=== PATIENT | female | born 1950 | race Caucasian/White ===

== ENCOUNTER 2019-07-14 09:30 | Inpatient (IN) | payer MEDICARE ==
[2019-07-14] MEDS ORDERED: MORPHINE SULFATE 4 MG/ML SYRINGE IM STA (10:25)
--- NOTE | 2019-07-14 10:52 | ED ---
Back Pain HPI <Mehdi Mckeon - Last Filed: 07/14/19 14:29> - General Source: patient, RN notes reviewed, old records reviewed Limitations: no limitations <Tessa Sosaily - Last Filed: 07/14/19 14:47> - General Chief Complaint: Back Pain/Injury Stated Complaint: lower back pain from fall, Hx back Sx Time Seen by Provider: 07/14/19 09:52 - History of Present Illness Initial Comments: Patient is 68-year-old female. She presents emergency department today with chief complaint of lower back pain after a fall last week. Patient reports she was walking with her cane, and tripped and fell her dining room landing on her buttocks. Patient was seen by her primary care doctor on Wednesday was given IM pain medication and had a one x-ray and stated there is no fracture and sent home. Patient reports that when she fell she landed on her right hip. She states that she's had some pain in the center of her lower back. As well as the left hip. Patient states that she has been able to walk but it's been very difficult. Patient states she's had no other significant symptoms. (Tiat Sosa) - Related Data Allergies Allergy/AdvReac Type Severity Reaction Status Date / Time ibuprofen [From Motrin] Allergy Unknown Verified 07/14/19 14:41 Penicillins Allergy Unknown Verified 07/14/19 14:41 quinine Allergy Unknown Verified 07/14/19 14:41 Review of Systems ROS Other: All systems not noted in ROS Statement are negative. <Mehdi Mckeon - Last Filed: 07/14/19 14:29> ROS Other: All systems not noted in ROS Statement are negative. <Tita Sosa - Last Filed: 07/14/19 14:47> ROS Statement: Those systems with pertinent positive or pertinent negative responses have been documented in the HPI. Past Medical History Past Medical History: Hypertension, Seizure Disorder Additional Past Medical History / Comment(s): Back problems. History of Any Multi-Drug Resistant Organisms: None Reported Past Surgical History: Hysterectomy, Orthopedic Surgery Past Psychological History: No Psychological Hx Reported Smoking Status: Never smoker Past Alcohol Use History: Occasional Past Drug Use History: None Reported <Tita Sosa - Last Filed: 07/14/19 14:47> General Exam Limitations: no limitations General appearance: alert, in no apparent distress Head exam: Present: atraumatic, normocephalic, normal inspection Eye exam: Present: normal appearance, PERRL, EOMI. Absent: scleral icterus, conjunctival injection, periorbital swelling ENT exam: Present: normal exam, mucous membranes moist Neck exam: Present: normal inspection. Absent: tenderness, meningismus, lymphadenopathy Respiratory exam: Present: normal lung sounds bilaterally. Absent: respiratory distress, wheezes, rales, rhonchi, stridor Cardiovascular Exam: Present: regular rate, normal rhythm, normal heart sounds. Absent: systolic murmur, diastolic murmur, rubs, gallop, clicks GI/Abdominal exam: Present: soft, normal bowel sounds. Absent: distended, tenderness, guarding, rebound, rigid Extremities exam: Present: normal inspection, full ROM, normal capillary refill, other (Roman has some lumbar sacral tenderness. No bruising noted. Tenderness over the left hip.). Absent: tenderness, pedal edema, joint swelling, calf tenderness Back exam: Present: normal inspection Neurological exam: Present: alert, oriented X3, CN II-XII intact Psychiatric exam: Present: normal affect, normal mood Skin exam: Present: warm, dry, intact, normal color. Absent: rash <Tita Sosa - Last Filed: 07/14/19 14:47> - General Exam Comments Initial Comments: Pleasant 68-year-old female. 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 (Tita Sosa) Course Vital Signs 07/14/19 07/14/19 09:39 14:38 Temperature 97.3 F L Pulse Rate 90 83 Respiratory 20 18 Rate Blood Pressure 120/82 138/87 O2 Sat by Pulse 98 96 Oximetry Medical Decision Making - Lab Data Result diagrams: 07/14/19 13:51 07/14/19 13:51 <Mehdi Mckeon - Last Filed: 07/14/19 14:29> - Lab Data Result diagrams: 07/14/19 13:51 07/14/19 13:51 - Radiology Data Radiology results: report reviewed <Tita Sosa - Last Filed: 07/14/19 14:47> - Medical Decision Making The patient was seen and examined. All diagnostics were reviewed. The case is discussed with the PA and I agree with the findings as above. The case is also discussed with Dr. Rubio and he is agreeable with admission. (Mehdi Mckeon) Patient is a 68-year-old female presents to return today 1 week post fall. She slipped and fell on her hardwood floor in her dining room partially one week ago. Patient reports inability to ambulate due to severe pain. He reports more on the right side. Patient had x-rays of her hip and pelvis and lumbar spine show no acute fracture. She continued to have inability to ambulate CT of the pelvis was completed. There is evidence of a sacral fracture S1-S2. With patient's concern for falling and evidence of fracture and inability to ambulate we discussed admission. Discussed case with Dr. Blood who discussed case with Dr. Rubio. Blood work was reviewed and unremarkable. Patient admitted with consult to physical therapy. (Tita Sosa) - Lab Data Lab Results 07/14/19 07/14/19 07/14/19 Range/Units 13:51 13:51 13:51 WBC 8.5 (3.8-10.6) k/uL RBC 4.04 (3.80-5.40) m/uL Hgb 13.4 (11.4-16.0) gm/dL Hct 38.9 (34.0-46.0) % MCV 96.2 (80.0-100.0) fL MCH 33.1 (25.0-35.0) pg MCHC 34.4 (31.0-37.0) g/dL RDW 13.0 (11.5-15.5) % Plt Count 348 (150-450) k/uL Neutrophils % 59 % Lymphocytes % 26 % Monocytes % 6 % Eosinophils % 5 % Basophils % 1 % Neutrophils # 5.0 (1.3-7.7) k/uL Lymphocytes # 2.2 (1.0-4.8) k/uL Monocytes # 0.6 (0-1.0) k/uL Eosinophils # 0.4 (0-0.7) k/uL Basophils # 0.1 (0-0.2) k/uL Sodium 138 (137-145) mmol/L Potassium 4.0 (3.5-5.1) mmol/L Chloride 99 (98-107) mmol/L Carbon Dioxide 28 (22-30) mmol/L Anion Gap 11 mmol/L BUN 13 (7-17) mg/dL Creatinine 0.46 L (0.52-1.04) mg/dL Est GFR (CKD-EPI)AfAm >90 (>60 ml/min/1.73 sqM) Est GFR (CKD-EPI)NonAf >90 (>60 ml/min/1.73 sqM) Glucose 94 (74-99) mg/dL Calcium 9.5 (8.4-10.2) mg/dL Total Bilirubin 0.5 (0.2-1.3) mg/dL AST 27 (14-36) U/L ALT 18 (9-52) U/L Alkaline Phosphatase 85 (38-126) U/L Total Protein 7.5 (6.3-8.2) g/dL Albumin 4.0 (3.5-5.0) g/dL Urine Color Yellow Urine Appearance Turbid H (Clear) Urine pH 7.5 (5.0-8.0) Ur Specific Marshall 1.016 (1.001-1.035) Urine Protein Negative (Negative) Urine Glucose (UA) Negative (Negative) Urine Ketones Negative (Negative) Urine Blood Negative (Negative) Urine Nitrite Negative (Negative) Urine Bilirubin Negative (Negative) Urine Urobilinogen <2.0 (<2.0) mg/dL Ur Leukocyte Esterase Negative (Negative) Urine RBC 9 H (0-5) /hpf Ur Squamous Epith Cells 13 H (0-4) /hpf Amorphous Sediment Moderate H (None) /hpf Urine Mucus Few H (None) /hpf - Radiology Data CT shows mildly displaced fracture along the superior edge emergency right sacrum at the proximal L1 S2. No fracture right hip however there is acute mildly displaced fracture at the right sacrum. Posttraumatic or insufficiency- type fracture and differential diagnosis. (Tita Sosa) Disposition <Mehdi Mckeon - Last Filed: 07/14/19 14:29> Is patient prescribed a controlled substance at d/c from ED?: No Time of Disposition: 14:47 <Tita Sosa - Last Filed: 07/14/19 14:47> Clinical Impression: Sacral fracture, Fall, Unable to ambulate Disposition: ADMITTED IP TO THIS HOSP Condition: Stable Referrals: Forrest Gibson DO [Primary Care Provider] - 1-2 days
--- NOTE | 2019-07-14 11:05 | XR ---
Lumbar spine HISTORY: Trauma and pain 3 views of the lumbar spine Posterior fusion is noted at L2-S1. Multilevel laminectomies are present L3, L4, L5. Paraspinal graft material has fused. Vertebral plasty change is present at L4. Bone mineralization is reduced. Multil evel spondylosis. Loss of disc height present T12-L1, L1-2 as well as at the operative levels. One of the sacral screws breaches the anterior cortex on the lateral view of S1. Mild loss of height at L4 vertebral body. There is mild spinal curvature. IMPRESSION: No acute fracture or subluxation. Low bone mineralization. Degenerative disc disease and additional findings above.
--- NOTE | 2019-07-14 11:13 | XR ---
EXAMINATION TYPE: XR Hip RT and AP Pelvis DATE OF EXAM: 07/14/2019 COMPARISON: NONE HISTORY: , And pain TECHNIQUE: A single AP view of the pelvis is obtained. Two views of the right hip are obtained. FINDINGS: There is no acute fracture/dislocation evident in the pelvis. The hip and sacroiliac join ts appear symmetric and unremarkable. The overlying soft tissue appears unremarkable. Two views of right hip show no acute fracture or dislocation. No focal lytic or sclerotic lesion see n in the proximal right femur. The overlying soft tissue is unremarkable. Stopped changes noted to the lumbosacral spine. Bone mineralization is somewhat reduced. IMPRESSION: There is no acute fracture or dislocation in the pelvis or right hip.
--- NOTE | 2019-07-14 11:16 | XR ---
Sacrum and coccyx HISTORY: Trauma and pain 3 views of the sacrum and coccyx Bone mineralization is somewhat reduced. This may limit sensitivity. Postop changes are noted at the lumbosacral junction. Alignment is maintained. Loss of disc height present L5-S1. The screws at the s acrum may breach the anterior cortex at S1. IMPRESSION: No fracture or dislocation is evident. Bone scan could be performed for increased sensiti vity.
--- NOTE | 2019-07-14 12:52 | CT ---
EXAMINATION TYPE: CT hip RT wo con DATE OF EXAM: 07/14/2019 COMPARISON: X-ray 07/14/2019 HISTORY: Fall 2 days ago. Inability to ambulate. CT DLP: 430.8 (scanned together) mGycm Automated exposure control for dose reduction was used. FINDINGS: Artifact is seen from the metallic hardware is surgical change involving the lumbar spine. Is a cortical defect partially included on exam extending through the visualized portion of the sacru m compatible with a mildly displaced fracture of the sacrum. Concentric narrowing of the hip joint noted. No acute fracture or dislocation. Sclerotic change invol ving the iliac bone most likely in the basis of a small bone island. Pubic rami are grossly intact. IMPRESSION: 1. No fracture of the right hip, however, there is an acute mildly displaced fracture of the right sa leon. Posttraumatic or insufficiency type fracture in the differential diagnosis.
--- NOTE | 2019-07-14 12:58 | CT ---
EXAMINATION TYPE: CT pelvis wo con DATE OF EXAM: 07/14/2019 COMPARISON: X-ray 07/14/2019 HISTORY: Fall 2 days ago. Inability to ambulate. CT DLP: 430.8 (scanned together) mGycm Automated exposure control for dose reduction was used. FINDINGS: There is no acute fracture through the right sacrum extending from the upper margin of the sacrum at the level adjacent to the SI joint extending anterior to posterior at the approximate level of S1 and S2. Postsurgical changes involving the lumbosacral spine noted. Pubic rami grossly intact. Vascular calcifications noted. Diverticulosis of the colon. No free fluid. IMPRESSION: MILDLY DISPLACED FRACTURE ALONG THE SUPERIOR ANTERIOR MARGIN OF THE RIGHT SACRUM AT THE APPROXIMATE L EVEL S1 AND S2.
[2019-07-14] MEDS ORDERED: MORPHINE SULFATE 2 MG/ML SYRINGE IVP ONE (13:44)
[2019-07-14 14:03] LABS: Basophils # (A) 0.1 k/uL (0-0.2); Basophils % (A) 1 %; Eosinophils # (A) 0.4 k/uL (0-0.7); Eosinophils % (A) 5 %; HCT 38.9 % (34.0-46.0); HGB 13.4 gm/dL (11.4-16.0); Lymphocytes # (A) 2.2 k/uL (1.0-4.8); Lymphocytes % (A) 26 %; MCH 33.1 pg (25.0-35.0); MCHC 34.4 g/dL (31.0-37.0); MCV 96.2 fL (80.0-100.0); Monocytes # (A) 0.6 k/uL (0-1.0); Monocytes % (A) 6 %; Neutrophils % (A) 59 %; Platelet Count 348 k/uL (150-450); RBC 4.04 m/uL (3.80-5.40); WBC 8.5 k/uL (3.8-10.6)
[2019-07-14 14:08] LABS: Amorphous Sediment,Urine Moderate /hpf; Appearance,Urine Turbid (Clear); Bilirubin,Urine Negative (Negative); Blood,Urine Negative (Negative); Color,Urine Yellow; Glucose,Urine (UA) Negative (Negative); Ketones,Urine Negative (Negative); Leukocyte Esterase,Urine Negative (Negative); Mucus,Urine Few /hpf; Nitrite,Urine Negative (Negative); PH, Urine 7.5 (5.0-8.0); Protein,Urine Negative (Negative); RBC,Urine 9 /hpf (0-5); Specific Gravity,Urine 1.016 (1.001-1.035); Squamous Epithelial Cell,Urine 13 /hpf (0-4); Urobilinogen,Urine <2.0 mg/dL (<2.0)
[2019-07-14 14:11] LABS: ALT 18 U/L (9-52); AST 27 U/L (14-36); African American GFR (CKD) >90 (>60 ml/min/1.73 sqM); Alkaline Phosphatase 85 U/L (38-126); Anion Gap 11 mmol/L; Blood Urea Nitrogen 13 mg/dL (7-17); Calcium 9.5 mg/dL (8.4-10.2); Carbon Dioxide 28 mmol/L (22-30); Chloride 99 mmol/L (98-107); Glucose 94 mg/dL (74-99); Sodium 138 mmol/L (137-145); Total Bilirubin 0.5 mg/dL (0.2-1.3); Total Protein 7.5 g/dL (6.3-8.2)
[2019-07-14] MEDS ORDERED: NALOXONE 0.4 MG/ML 1 ML VIAL IV PRN (14:47)
[2019-07-14] MEDS ORDERED: KETOROLAC 30 MG/ML 1 ML VIAL IVP PRN (14:47)
[2019-07-14] MEDS ORDERED: ONDANSETRON 4 MG/2 ML VIAL IVP PRN (14:47)
[2019-07-14] MEDS ORDERED: MORPHINE SULFATE 4 MG/ML SYRINGE IV PRN (14:47)
[2019-07-14] MEDS ORDERED: ACETAMINOPHEN TAB 325 MG TAB PO PRN (14:47)
[2019-07-14] MEDS ORDERED: IBUPROFEN 400 MG TAB PO PRN (14:47)
[2019-07-14 16:14] VITALS: BMI 23.3
[2019-07-14] MEDS: SODIUM CHLORIDE 0.9% 1,000 ML IV SCH (16:43)
[2019-07-14] MEDS: PHENobarbital 32.4 MG TAB PO SCH (20:19)
[2019-07-14] MEDS: ASPIRIN 81 MG PO SCH (20:19)
[2019-07-14] MEDS: LISINOPRIL 20 MG TAB PO SCH (20:19)
[2019-07-14] MEDS: DIVALPROEX 500 MG TABLET.DR PO SCH (20:19)
[2019-07-14] MEDS: VIT A,C & E-LUTEIN-MINERALS 1 EACH TAB PO SCH (20:19)
[2019-07-14] MEDS: DOCUSATE 100 MG CAP PO SCH (20:19)
[2019-07-14] MEDS: carBAMazepine 200 MG TAB PO SCH (20:20)
--- NOTE | 2019-07-14 22:40 | HP ---
HISTORY AND PHYSICAL This is a 68-year-old white female who apparently fell a week ago on to her lower back and sacral spine. She is unable to walk, take care of herself despite outpatient treatment. She came to the emergency room because of inability to ambulate and need for physical therapy and orthopedic, neuro, surgery consult. ALLERGIES: 1. IBUPROFEN. 2. PENICILLIN. 3. QUININE. PAST MEDICAL HISTORY: 1. Hypertension. 2. Seizure disorder. She does not smoke or drink alcohol. CARDIOVASCULAR: S1, S2. LUNGS: Clear. GI: Soft. HEMATOLOGY: Negative Homans. MUSCULOSKELETAL: She is able to bend bilateral knees. Temperature 97.3, pulse 93 to 80, respiratory rate 18-20, blood pressure 121/38 over 70s. Hemoglobin 13.4, white count 8.5. multiple x-rays were reviewed. X-rays of her hip, pelvis, lumbar spine; no fracture. CT scan of the pelvis shows a sacral fracture, S1-S2. She is admitted for physical therapy, medical treatment for neurosurgery. MMODL / ELAYNEN: [id number] /
[2019-07-15] MEDS: LEVOTHYROXINE 100 MCG TAB PO SCH (05:54)
[2019-07-15] MEDS: VIT A,C & E-LUTEIN-MINERALS 1 EACH TAB PO SCH ×2 (08:58→21:37)
[2019-07-15] MEDS: MULTIVITAMINS, THERA 1 EACH TAB PO SCH (08:58)
[2019-07-15] MEDS: SERTRALINE 50 MG TAB PO SCH (08:58)
[2019-07-15] MEDS: PHENobarbital 32.4 MG TAB PO SCH ×2 (08:59→21:36)
[2019-07-15] MEDS: DIVALPROEX 500 MG TABLET.DR PO SCH ×2 (08:59→21:37)
[2019-07-15] MEDS: carBAMazepine 200 MG TAB PO SCH ×2 (08:59→21:37)
[2019-07-15] MEDS: LISINOPRIL 10 MG TAB PO SCH (08:59)
[2019-07-15] MEDS: CYANOCOBALAMIN 500 MCG TAB PO SCH (08:59)
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
[2019-07-15] MEDS: SODIUM CHLORIDE 0.9% 1,000 ML IV SCH (16:14)
[2019-07-15] MEDS: methylPREDNISolone SOD SUCCI 40 MG/ML 1 ML VIAL IV SCH (16:19)
[2019-07-15] MEDS: DOCUSATE 100 MG CAP PO SCH (21:36)
[2019-07-15] MEDS: ASPIRIN 81 MG PO SCH (21:36)
[2019-07-15] MEDS: LISINOPRIL 20 MG TAB PO SCH (21:40)
[2019-07-16] MEDS: methylPREDNISolone SOD SUCCI 40 MG/ML 1 ML VIAL IV SCH ×4 (00:15→23:17)
--- NOTE | 2019-07-16 00:53 | PN ---
PROGRESS NOTE 68-year-old white female, inability to ambulate due sacral fracture, S3, S4. Awaiting for neurosurgery evaluation. CARDIOVASCULAR: S1, S2. Lungs clear. GI soft. Hematology negative Homans. ASSESSMENT: Sacral fracture. Start IV steroids 40 q.8, PT/OT and rehab placement. MMODL / IJN: [id number] /
[2019-07-16] MEDS: LEVOTHYROXINE 100 MCG TAB PO SCH (05:52)
[2019-07-16] MEDS: DIVALPROEX 500 MG TABLET.DR PO SCH ×2 (08:37→21:28)
[2019-07-16] MEDS: PHENobarbital 32.4 MG TAB PO SCH ×2 (08:37→21:24)
[2019-07-16] MEDS: CYANOCOBALAMIN 500 MCG TAB PO SCH (08:37)
[2019-07-16] MEDS: carBAMazepine 200 MG TAB PO SCH ×2 (08:37→21:26)
[2019-07-16] MEDS: VIT A,C & E-LUTEIN-MINERALS 1 EACH TAB PO SCH ×2 (08:37→21:26)
[2019-07-16] MEDS: SERTRALINE 50 MG TAB PO SCH (08:38)
[2019-07-16] MEDS: LISINOPRIL 10 MG TAB PO SCH (08:38)
[2019-07-16] MEDS: MULTIVITAMINS, THERA 1 EACH TAB PO SCH (08:38)
[2019-07-16] MEDS: SODIUM CHLORIDE 0.9% 1,000 ML IV SCH (16:49)
--- NOTE | 2019-07-16 18:20 | PN ---
PROGRESS NOTE 68-year-old white female with sacral fracture and inability to ambulate. She has been placed on IV Solu-Medrol. We are going to stop that and get her ambulating and send her to rehab center in the next 24-48 hours. She is unable to ambulate. Continue on current thyroid and blood pressure medications, seizure medications. MMODL / IJN: [id number] /
[2019-07-16] MEDS: DOCUSATE 100 MG CAP PO SCH (21:24)
[2019-07-16] MEDS: LISINOPRIL 20 MG TAB PO SCH (21:24)
[2019-07-16] MEDS: ASPIRIN 81 MG PO SCH (21:24)
[2019-07-17] MEDS: LEVOTHYROXINE 100 MCG TAB PO SCH (05:42)
[2019-07-17] MEDS: CYANOCOBALAMIN 500 MCG TAB PO SCH (07:46)
[2019-07-17] MEDS: DIVALPROEX 500 MG TABLET.DR PO SCH ×2 (07:46→20:07)
[2019-07-17] MEDS: PHENobarbital 32.4 MG TAB PO SCH ×2 (07:46→20:08)
[2019-07-17] MEDS: MULTIVITAMINS, THERA 1 EACH TAB PO SCH (07:46)
[2019-07-17] MEDS: LISINOPRIL 10 MG TAB PO SCH (07:46)
[2019-07-17] MEDS: SERTRALINE 50 MG TAB PO SCH (07:46)
[2019-07-17] MEDS: methylPREDNISolone SOD SUCCI 40 MG/ML 1 ML VIAL IV SCH ×3 (07:50→23:30)
[2019-07-17] MEDS: VIT A,C & E-LUTEIN-MINERALS 1 EACH TAB PO SCH ×2 (09:02→20:09)
[2019-07-17] MEDS: carBAMazepine 200 MG TAB PO SCH ×2 (09:02→20:09)
[2019-07-17] MEDS: Acetaminophen-Codeine 300-30mg TAB PO PRN (13:06)
[2019-07-17] MEDS: SODIUM CHLORIDE 0.9% 1,000 ML IV SCH (18:12)
[2019-07-17] MEDS: ASPIRIN 81 MG PO SCH (20:07)
[2019-07-17] MEDS: DOCUSATE 100 MG CAP PO SCH (20:08)
[2019-07-17] MEDS: LISINOPRIL 20 MG TAB PO SCH (20:08)
--- NOTE | 2019-07-17 21:57 | PN ---
PROGRESS NOTE SUBJECTIVE: Cbage[age]-old white female with acute sacral fracture . She is able to get up to the chair. PT/OT has been consulted. She wants to go to [facility] for physical therapy; [facility] is her second choice. CARDIOVASCULAR: S1, S2. LUNGS: Clear. GI: Soft. HEMATOLOGY: Negative Homans. PSYCH: Fair mood and affect. ASSESSMENT: 1. Acute sacral fracture, vertebral pain. 2. Multiple medical conditions. Continue with current treatment. PT/OT. Rehab placement as mentioned above as soon as possible. MMODL / IJN: [id number] /
[2019-07-18] MEDS: LEVOTHYROXINE 100 MCG TAB PO SCH (04:44)
[2019-07-18 08:35] VITALS: RESP 15
[2019-07-18] MEDS: methylPREDNISolone SOD SUCCI 40 MG/ML 1 ML VIAL IV SCH (09:04)
[2019-07-18] MEDS: CYANOCOBALAMIN 500 MCG TAB PO SCH (09:05)
[2019-07-18] MEDS: PHENobarbital 32.4 MG TAB PO SCH (09:05)
[2019-07-18] MEDS: DIVALPROEX 500 MG TABLET.DR PO SCH (09:06)
[2019-07-18] MEDS: MULTIVITAMINS, THERA 1 EACH TAB PO SCH (09:06)
[2019-07-18] MEDS: SERTRALINE 50 MG TAB PO SCH (09:07)
[2019-07-18] MEDS: LISINOPRIL 10 MG TAB PO SCH (09:07)
[2019-07-18] MEDS: VIT A,C & E-LUTEIN-MINERALS 1 EACH TAB PO SCH (09:07)
[2019-07-18] MEDS: carBAMazepine 200 MG TAB PO SCH (09:08)
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
[2019-07-18 14:50] VITALS: BP 142/89; PULSE 90; TEMP 98.2
[2019-07-18] MEDS: Acetaminophen-Codeine 300-30mg TAB PO PRN (14:56)
[2019-07-18] MEDS ORDERED: traMADol 50 MG TAB PO SCH (16:00)
== END 2019-07-18 15:55 | DRG 552 ==
LOC: EC 09:30 → 4SSUR 14:24 → OBSVTOIN 07-15 11:54
PROVIDERS: ADMIT Family Medicine; ATTEND Family Medicine
DX: S32.19XA Other fracture of sacrum, initial encounter for closed fracture (principal); I10 Essential (primary) hypertension; G40.909 Epilepsy, unspecified, not intractable, without status epilepticus; M51.35 Other intervertebral disc degeneration, thoracolumbar region; E03.9 Hypothyroidism, unspecified; S30.0XXA Contusion of lower back and pelvis, initial encounter; W01.0XXA Fall on same level from slipping, tripping and stumbling without subsequent striking against object, initial encounter; Y93.01 Activity, walking, marching and hiking; Z96.651 Presence of right artificial knee joint; Y92.001 Dining room of unspecified non-institutional (private) residence as the place of occurrence of the external cause; Z88.6 Allergy status to analgesic agent; Z88.0 Allergy status to penicillin; Z88.8 Allergy status to other drugs, medicaments and biological substances; Z90.710 Acquired absence of both cervix and uterus; Z87.440 Personal history of urinary (tract) infections; Z87.891 Personal history of nicotine dependence; Z80.9 Family history of malignant neoplasm, unspecified; Z79.82 Long term (current) use of aspirin; Z79.899 Other long term (current) drug therapy; Z79.890 Hormone replacement therapy; Z98.1 Arthrodesis status; Z91.81 History of falling
CPT/HCPCS: 36415; 72100; 72192; 72220; 73502; 80053; 81001; 85025; 96372; 96374; 99285

== ENCOUNTER → 2020-07-18 | Outpatient (CLI) | payer MEDICARE ==
[2020-07-18 09:49] LABS: Basophils % (A) 0 %; Eosinophils # (A) 0.2 k/uL (0-0.7); Eosinophils % (A) 4 %; HCT 39.1 % (34.0-46.0); HGB 12.2 gm/dL (11.4-16.0); Lymphocytes # (A) 2.2 k/uL (1.0-4.8); Lymphocytes % (A) 40 %; MCH 30.9 pg (25.0-35.0); MCHC 31.2 g/dL (31.0-37.0); MCV 99.2 fL (80.0-100.0); Mean Platelet Volume 8.1; Monocytes # (A) 0.3 k/uL (0-1.0); Monocytes % (A) 6 %; Neutrophils # (A) 2.5 k/uL (1.3-7.7); Neutrophils % (A) 47 %; Platelet Count 223 k/uL (150-450); RBC 3.94 m/uL (3.80-5.40); RDW 13.6 % (11.5-15.5); WBC 5.4 k/uL (3.8-10.6)
[2020-07-18 16:49] LABS: African American GFR (CKD) 101.7 (60.0-200.0); Albumin 3.7 g/dL (3.80-4.90); Albumin/Globulin Ratio 1.54 (1.60-3.17); Anion Gap 5.6 mmol/L (4.00-12.00); BUN/Creat Ratio 35.71 Ratio (12.00-20.00); Calcium 9.2 mg/dL (8.7-10.3); Carbon Dioxide 29.4 mmol/L (21.6-31.8); Chol/HDL Ratio 3.22; Globulin 2.4 g/dL (1.6-3.3); Non-African American GFR(CKD) 87.8 (60.0-200.0); Potassium 4.9 mmol/L (3.5-5.5); Total Bilirubin 0.4 mg/dL (0.2-1.2); Total Protein 6.1 g/dL (6.2-8.2)
== END | disposition home or self-care (01) ==
LOC: LABWHC1 08:14
PROVIDERS: ATTEND Family Medicine
DX: E03.9 Hypothyroidism, unspecified (principal)
CPT/HCPCS: 36415; 80053; 80061; 84443; 85025

== ENCOUNTER → 2020-07-19 | Outpatient (CLI) | payer MEDICARE ==
[2020-07-19 15:31] LABS: Valproic Acid (Depakene) 26.2 ug/mL (50.0-100.0)
[2020-07-19 21:40] LABS: Carbamazepine (Tegretol) 4.6 ug/mL (4.0-12.0)
== END | disposition home or self-care (01) ==
LOC: LABWHC1 07:21
PROVIDERS: ATTEND Family Medicine
DX: E03.9 Hypothyroidism, unspecified (principal)
CPT/HCPCS: 36415; 80156; 80164; 80184

== ENCOUNTER 2020-08-06 10:50 | Emergency (ER) | payer MEDICARE ==
[2020-08-06 11:01] VITALS: RESP 16; TEMP 97.7
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
--- NOTE | 2020-08-06 11:59 | XR ---
EXAMINATION TYPE: XR shoulder complete RT DATE OF EXAM: 08/06/2020 Comparison: 02/07/2014 Clinical History: 70-year-old female with shoulder pain x 2 weeks Findings: Mild degenerative joint space narrowing of the AC joint. Subacromial space is preserved. Mild scleros is and slight irregularity of the greater tuberosity. No tendinous or bursal calcifications. No acute fracture, subluxation, dislocation seen. Visualized right hemithorax is clear. Impression: Mild degenerative change at the AC joint and some mild changes which can be seen with chronic rotator cuff tendinopathy. No acute osseous abnormality seen.
--- NOTE | 2020-08-06 12:00 | XR ---
EXAMINATION TYPE: XR elbow complete RT DATE OF EXAM: 08/06/2020 COMPARISON: None HISTORY: 70-year-old female elbow pain for 2 weeks TECHNIQUE: 3 views FINDINGS: No acute fracture, subluxation, dislocation. Osteopenia. No elbow joint effusion. IMPRESSION: No acute osseous abnormality seen.
[2020-08-06 13:16] VITALS: BP 168/110; PULSE 89
== END 2020-08-06 12:45 | disposition home or self-care (01) ==
LOC: EC 10:50
DX: M19.011 Primary osteoarthritis, right shoulder (principal); M77.01 Medial epicondylitis, right elbow; M79.601 Pain in right arm; I10 Essential (primary) hypertension; G40.909 Epilepsy, unspecified, not intractable, without status epilepticus; E03.9 Hypothyroidism, unspecified; Z79.82 Long term (current) use of aspirin; Z79.899 Other long term (current) drug therapy; Z79.52 Long term (current) use of systemic steroids; Z88.6 Allergy status to analgesic agent; Z88.0 Allergy status to penicillin; Z88.8 Allergy status to other drugs, medicaments and biological substances; Z96.651 Presence of right artificial knee joint; Z87.891 Personal history of nicotine dependence
CPT/HCPCS: 99283

== ENCOUNTER → 2021-02-25 | Outpatient (CLI) | payer MEDICARE ==
[2021-02-25 15:59] LABS: Basophils # (A) 0.02 X 10*3/uL (0.00-0.10); Basophils % (A) 0.4 %; Eosinophils % (A) 4.2 %; HCT 39.6 % (37.2-46.3); HGB 12.5 g/dL (12.0-15.0); Lymphocytes # (A) 2.44 X 10*3/uL (0.90-5.00); Lymphocytes % (A) 51.3 %; MCH 31.7 pg (27.0-32.0); MCHC 31.6 g/dL (32.0-37.0); MCV 100.5 fL (80.0-97.0); Mean Platelet Volume 11.6 fL (9.5-12.2); Monocytes # (A) 0.42 X 10*3/uL (0.20-1.00); Monocytes % (A) 8.8 %; Neutrophils # (A) 1.66 X 10*3/uL (1.80-7.70); Neutrophils % (A) 34.9 %; Platelet Count 234 X 10*3/uL (140-440); RBC 3.94 X 10*6/uL (4.10-5.20); RDW 14.4 % (11.5-14.5); WBC 4.76 X 10*3/uL (4.50-10.00)
[2021-02-25 19:32] LABS: Valproic Acid (Depakene) 45.3 ug/mL (50.0-100.0)
[2021-02-25 19:34] LABS: African American GFR (CKD) 106.3 (60.0-200.0); Albumin 3.9 g/dL (3.80-4.90); Albumin/Globulin Ratio 1.63 (1.60-3.17); Anion Gap 10.6 mmol/L (4.00-12.00); Carbon Dioxide 27.4 mmol/L (21.6-31.8); Chol/HDL Ratio 3.44; Globulin 2.4 g/dL (1.6-3.3); Non-African American GFR(CKD) 91.7 (60.0-200.0); Potassium 4.6 mmol/L (3.5-5.5); Total Bilirubin 0.5 mg/dL (0.3-1.2); Total Protein 6.3 g/dL (6.2-8.2)
[2021-02-26 15:59] LABS: Carbamazepine (Tegretol) 5.2 ug/mL (4.0-12.0)
== END | disposition home or self-care (01) ==
LOC: LABWHC1 09:35
PROVIDERS: ATTEND Family Medicine
DX: E03.9 Hypothyroidism, unspecified (principal); I10 Essential (primary) hypertension
CPT/HCPCS: 36415; 80053; 80061; 80156; 80164; 83721; 84443; 85025

== ENCOUNTER → 2022-07-30 | Outpatient (CLI) | payer MEDICARE ==
[2022-07-30 14:57] LABS: Basophils # (A) 0.02 X 10*3/uL (0.00-0.10); Basophils % (A) 0.4 %; Eosinophils # (A) 0.14 X 10*3/uL (0.04-0.35); HCT 39.2 % (37.2-46.3); HGB 12.2 g/dL (12.0-15.0); Immature Grans, Automated 0.4 %; Lymphocytes # (A) 1.76 X 10*3/uL (0.90-5.00); Lymphocytes % (A) 37.4 %; MCH 31.9 pg (27.0-32.0); MCHC 31.1 g/dL (32.0-37.0); MCV 102.6 fL (80.0-97.0); Mean Platelet Volume 11.4 fL (9.5-12.2); Monocytes # (A) 0.49 X 10*3/uL (0.20-1.00); Monocytes % (A) 10.4 %; NRBC Per 100 WBC 0 /100 WBCS (0.0-0.0); Neutrophils # (A) 2.27 X 10*3/uL (1.80-7.70); Neutrophils % (A) 48.4 %; Platelet Count 244 X 10*3/uL (140-440); RBC 3.82 X 10*6/uL (4.10-5.20); RDW 13.5 % (11.5-14.5)
[2022-07-30 15:40] LABS: ALT 22 U/L (8-44); AST 27 U/L (13-35); African American GFR (CKD) 101.7 (60.0-200.0); Albumin 3.8 g/dL (3.8-4.9); Albumin/Globulin Ratio 1.65 (1.60-3.17); Alkaline Phosphatase 82 U/L (41-126); BUN/Creat Ratio 24.05 Ratio (12.00-20.00); Blood Urea Nitrogen 15.8 mg/dL (9.0-27.0); Calcium 9.4 mg/dL (8.7-10.3); Chloride 102 mmol/L (96-109); Chol/HDL Ratio 3.45 Ratio; Globulin 2.3 g/dL (1.6-3.3); Glucose 92 mg/dL (70-110); LDL Cholesterol,Calculated 102.1 mg/dL (0.0-131.0); Non-African American GFR(CKD) 87.8 (60.0-200.0); Potassium 5.1 mmol/L (3.5-5.5); Sodium 140 mmol/L (135-145); Total Protein 6.2 g/dL (6.2-8.2)
[2022-07-30 18:40] LABS: Carbamazepine (Tegretol) 4.2 ug/mL (4.0-12.0)
[2022-07-30 18:43] LABS: Valproic Acid (Depakene) 24.2 ug/mL (50.0-100.0)
== END | disposition home or self-care (01) ==
LOC: LABWHC1 08:48
PROVIDERS: ATTEND Family Medicine
DX: I10 Essential (primary) hypertension (principal); E03.9 Hypothyroidism, unspecified
CPT/HCPCS: 36415; 80053; 80061; 80156; 80164; 84443; 85025

== ENCOUNTER → 2024-02-09 | Outpatient (CLI) | payer MEDICARE ==
[2024-02-09 14:41] LABS: Basophils # (A) 0.02 X 10*3/uL (0.00-0.10); Basophils % (A) 0.4 %; Eosinophils # (A) 0.11 X 10*3/uL (0.04-0.35); Eosinophils % (A) 2.4 %; HCT 36.1 % (37.2-46.3); HGB 11.6 g/dL (12.0-15.0); Lymphocytes # (A) 1.61 X 10*3/uL (0.90-5.00); Lymphocytes % (A) 35.2 %; MCH 32.3 pg (27.0-32.0); MCHC 32.1 g/dL (32.0-37.0); MCV 100.6 FL (80.0-97.0); Mean Platelet Volume 11.1 FL (9.5-12.2); Monocytes # (A) 0.45 X 10*3/uL (0.20-1.00); Monocytes % (A) 9.8 %; NRBC Per 100 WBC 0 X 10*3/uL (0.00-0.01); Neutrophils # (A) 2.38 X 10*3/uL (1.80-7.70); Platelet Count 242 X 10*3/uL (140-440); RBC 3.59 X 10*6/uL (4.10-5.20); RDW 13.9 % (11.5-14.5); WBC 4.58 X 10*3/uL (4.50-10.00)
[2024-02-09 15:37] LABS: ALT 13 U/L (8-44); AST 22 U/L (13-35); Albumin 3.7 g/dL (3.8-4.9); Albumin/Globulin Ratio 1.61 Ratio (1.60-3.17); Alkaline Phosphatase 84 U/L (41-126); BUN/Creat Ratio 22.29 Ratio (12.00-20.00); Blood Urea Nitrogen 15.6 mg/dL (9.0-27.0); Calcium 9.3 mg/dL (8.7-10.3); Carbon Dioxide 28.1 mmol/L (21.6-31.8); Chloride 102 mmol/L (96-109); Chol/HDL Ratio 3.25 Ratio; Globulin 2.3 g/dL (1.6-3.3); Glucose 92 mg/dL (70-110); LDL Cholesterol,Calculated 100.2 mg/dL (0.0-131.0); Potassium 4.6 mmol/L (3.5-5.5); Sodium 139 mmol/L (135-145); Total Bilirubin 0.3 mg/dL (0.3-1.2)
[2024-02-09 17:54] LABS: Carbamazepine (Tegretol) 4.6 UG/ML (4.0-12.0); Valproic Acid (Depakene) 46.5 UG/ML (50.0-100.0)
== END | disposition home or self-care (01) ==
LOC: LABWHC1 09:25
PROVIDERS: ATTEND Family Medicine
DX: I10 Essential (primary) hypertension (principal); E03.9 Hypothyroidism, unspecified; E78.5 Hyperlipidemia, unspecified; G40.909 Epilepsy, unspecified, not intractable, without status epilepticus
CPT/HCPCS: 36415; 80053; 80061; 80156; 80164; 80184; 85025

== ENCOUNTER → 2024-07-31 | Outpatient (CLI) | payer MEDICARE ==
[2024-07-31 15:03] LABS: Basophils # (A) 0.01 X 10*3/uL (0.00-0.10); Basophils % (A) 0.2 %; Eosinophils # (A) 0.15 X 10*3/uL (0.04-0.35); Eosinophils % (A) 2.6 %; HCT 36.9 % (37.2-46.3); HGB 11.6 g/dL (12.0-15.0); Lymphocytes # (A) 1.87 X 10*3/uL (0.90-5.00); MCH 32.4 pg (27.0-32.0); MCHC 31.4 g/dL (32.0-37.0); MCV 103.1 FL (80.0-97.0); Mean Platelet Volume 11.5 FL (9.5-12.2); Monocytes # (A) 0.61 X 10*3/uL (0.20-1.00); Monocytes % (A) 10.4 %; NRBC Per 100 WBC 0 X 10*3/uL (0.00-0.01); Neutrophils # (A) 3.18 X 10*3/uL (1.80-7.70); Neutrophils % (A) 54.5 %; Platelet Count 231 X 10*3/uL (140-440); RBC 3.58 X 10*6/uL (4.10-5.20); RDW 13.8 % (11.5-14.5); WBC 5.84 X 10*3/uL (4.50-10.00)
[2024-07-31 15:43] LABS: Blood Urea Nitrogen 20.4 mg/dL (9.0-27.0); Chloride 108 mmol/L (96-109); Chol/HDL Ratio 2.93 Ratio; Glucose 87 mg/dL (70-110); Potassium 4.4 mmol/L (3.5-5.5); Sodium 145 mmol/L (135-145); VLDL Calculation 19.62 mg/dL (5.00-40.00)
[2024-07-31 15:44] LABS: ALT 21 U/L (8-44); AST 30 U/L (13-35); Albumin 3.6 g/dL (3.8-4.9); Albumin/Globulin Ratio 1.44 Ratio (1.60-3.17); Alkaline Phosphatase 103 U/L (41-126); Calcium 8.9 mg/dL (8.7-10.3); Carbon Dioxide 27.8 mmol/L (21.6-31.8); Globulin 2.5 g/dL (1.6-3.3); Total Bilirubin <0.2 mg/dL (0.3-1.2); Total Protein 6.1 g/dL (6.2-8.2)
[2024-07-31 19:09] LABS: Carbamazepine (Tegretol) 4.3 UG/ML (4.0-12.0); Valproic Acid (Depakene) 49.5 UG/ML (50.0-100.0)
== END | disposition home or self-care (01) ==
LOC: LABWHC1 09:41
PROVIDERS: ATTEND Family Medicine
CPT/HCPCS: 36415; 80053; 80061; 80156; 80164; 80184; 84443; 85025

== ENCOUNTER 2024-08-24 17:43 | Emergency (ER) | payer MEDICARE ==
[2024-08-24 18:14] VITALS: PULSE 79; RESP 20; TEMP 98.2
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
--- NOTE | 2024-08-24 19:16 | XR ---
EXAMINATION TYPE: XR sacrum coccyx DATE OF EXAM: 08/24/2024 7:01 PM COMPARISON: None CLINICAL INDICATION: Female, 74 years old with history of of pain TECHNIQUE: XR sacrum coccyx, examined in frontal and lateral projections. FINDINGS: There is no evidence of fracture or dislocation. There is no soft tissue abnormality. Pelv ic phleboliths are present. Multilevel degenerative changes of the lower spine. Fixation changes to the spine appear intact. IMPRESSION: No fracture identified. [facility], , 08/24/2024 7:13 PM
--- NOTE | 2024-08-24 19:16 | XR ---
EXAMINATION TYPE: XR pelvis AP view DATE OF EXAM: 08/24/2024 7:01 PM COMPARISON: 07/14/2019 CLINICAL INDICATION: Female, 74 years old with history of pain TECHNIQUE: XR pelvis AP view, examined in a single projection. FINDINGS: There is no evidence of fracture or dislocation. There is no soft tissue abnormality. No a bnormal calcifications are present. The spine appears intact. The hips appear intact. Osteophyte form ation of the superior acetabulum bilaterally with mild joint space narrowing. Degeneration changes of the spine with fixation hardware intact. IMPRESSION: 1. No acute osseous pathology. 2. Mild degeneration changes of the hip. [facility], , 08/24/2024 7:14 PM
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
[2024-08-24] MEDS: ACETAMINOPHEN TAB 500 MG TAB PO STA (19:23)
[2024-08-24 19:55] VITALS: BP 163/95
== END 2024-08-24 19:55 | disposition home or self-care (01) ==
LOC: EC 17:43
DX: S09.90XA Unspecified injury of head, initial encounter (principal); Z87.891 Personal history of nicotine dependence; Z88.0 Allergy status to penicillin; Z88.6 Allergy status to analgesic agent; W01.10XA Fall on same level from slipping, tripping and stumbling with subsequent striking against unspecified object, initial encounter
CPT/HCPCS: 70450; 72125; 72170; 72220; 99284

== ENCOUNTER → 2025-02-02 | Outpatient (CLI) | payer MEDICARE ==
[2025-02-02 19:50] LABS: Carbamazepine (Tegretol) 3.6 UG/ML (4.0-12.0); Valproic Acid (Depakene) 38.6 UG/ML (50.0-100.0)
== END | disposition home or self-care (01) ==
LOC: LABWHC1 09:46
PROVIDERS: ATTEND Family Medicine
DX: G40.911 Epilepsy, unspecified, intractable, with status epilepticus (principal)
CPT/HCPCS: 36415; 80156; 80164; 80184

== ENCOUNTER 2025-04-03 11:47 | Observation (INO) | payer MEDICARE ==
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
[2025-04-03 13:20] LABS: ALT 23 U/L (4-34); AST 41 U/L (14-36); African American GFR (CKD) >90 (>60 ml/min/1.73 sqM); Albumin 3.8 g/dL (3.5-5.0); Alkaline Phosphatase 124 U/L (38-126); Anion Gap 8 mmol/L; Blood Urea Nitrogen 14 mg/dL (7-17); Calcium 9.5 mg/dL (8.4-10.2); Carbon Dioxide 29 mmol/L (22-30); Chloride 102 mmol/L (98-107); Glucose 112 mg/dL (74-99); Magnesium 2.4 mg/dL (1.6-2.3); Non-African American GFR(CKD) 90 (>60 ml/min/1.73 sqM); Potassium 4.1 mmol/L (3.5-5.1); Sodium 139 mmol/L (137-145); Total Bilirubin 0.4 mg/dL (0.2-1.3); Total Protein 6.9 g/dL (6.3-8.2)
[2025-04-03 13:27] LABS: Basophils # (A) 0.04 10*3/uL (0.00-0.10); Basophils % (A) 0.4 %; HCT 39.8 % (37.2-46.3); Lymphocytes # (A) 1.43 10*3/uL (0.90-5.00); Lymphocytes % (A) 15.1 %; MCH 32.3 pg (27.0-32.0); MCHC 32.7 g/dL (32.0-37.0); MCV 98.8 fL (80.0-97.0); Mean Platelet Volume 11.1 fL (9.5-12.2); Monocytes # (A) 1.18 10*3/uL (0.20-1.00); Monocytes % (A) 12.5 %; Neutrophils # (A) 6.75 10*3/uL (1.80-7.70); Neutrophils % (A) 71.3 %; Platelet Count 231 10*3/uL (140-440); RBC 4.03 10*6/uL (4.10-5.20); RDW 14.4 % (11.5-14.5); WBC 9.47 10*3/uL (4.50-10.00)
--- NOTE | 2025-04-03 13:39 | XR ---
EXAMINATION TYPE: XR chest 2V DATE OF EXAM: 04/03/2025 1:33 PM COMPARISON: Chest radiographs from 03/15/2025 CLINICAL INDICATION: Female, 74 years old with history of weakness, worsening right arm weakness; [facility] TECHNIQUE: XR chest 2V Frontal and lateral views of the chest. FINDINGS: Lungs/Pleura: Possible new airspace opacities projecting the spine lateral view. There is no evidence of pleural effusion, focal consolidation, or pneumothorax. Pulmonary vascularity: Unremarkable. Heart/mediastinum: Cardiomediastinal silhouette is unremarkable. Musculoskeletal: No acute osseous pathology. IMPRESSION: There is left to be airspace opacities projecting over the spine on lateral view correlate for pneumo estevan. [facility], , 04/03/2025 1:37 PM
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
[2025-04-03 15:02] LABS: Appearance,Urine Cloudy (Clear); Bacteria,Urine Rare /hpf; Bilirubin,Urine Negative (Negative); Blood,Urine Negative (Negative); Color,Urine Yellow; Glucose,Urine (UA) Negative (Negative); Hyaline Casts,Urine 1 /lpf (0-2); Ketones,Urine Trace (Negative); Leukocyte Esterase,Urine Small (Negative); Mucus,Urine Rare /hpf; Nitrite,Urine Positive (Negative); Protein,Urine Trace (Negative); RBC,Urine 1 /hpf (0-5); Specific Gravity,Urine 1.018 (1.001-1.035); Squamous Epithelial Cell,Urine <1 /hpf (0-4); Urobilinogen,Urine <2.0 mg/dL (<2.0); WBC,Urine 31 /hpf (0-5)
[2025-04-03] MEDS ORDERED: NALOXONE 0.4 MG/ML 1 ML VIAL IV PRN (15:17)
[2025-04-03] MEDS ORDERED: ACETAMINOPHEN TAB 325 MG TAB PO PRN (15:17)
[2025-04-03] MEDS: cefTRIAXone IN SWFI 1,000 MG/10 ML SYRINGE IVP STA (15:45)
[2025-04-03] MEDS: AZITHROMYCIN 500 MG in SODIUM CHLORIDE 0.9% 250 ML IVPB STA (15:48)
[2025-04-03] MEDS: SODIUM CHLORIDE 0.9% 1,000 ML IV SCH (16:51)
[2025-04-03] MEDS: PANTOPRAZOLE 40 MG TABLET PO SCH (18:11)
[2025-04-03 18:24] LABS: INR 1.1 (<1.2); Partial Thromboplastin Time 25.9 sec (22.0-30.0); Prothrombin Time 11.7 sec (10.0-12.5)
[2025-04-03 18:47] LABS: Influenza A Not Detected (Not Detectd); Influenza B Not Detected (Not Detectd); RSV Not Detected (Not Detectd)
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
--- NOTE | 2025-04-03 21:17 | XR ---
EXAMINATION TYPE: XR ankle complete RT DATE OF EXAM: 04/03/2025 5:58 PM COMPARISON: 03/15/2025 CLINICAL INDICATION: Female, 74 years old with history of fracture, pain TECHNIQUE: 3 view(s) obtained. FINDINGS: Prior open reduction internal fixation at the ankle is evident. The ankle mortise is intact. Acute fr actures are not identified. Soft tissues appear normal Achilles tendon calcaneal heel spur present. F ollow up exams can be performed 7-10 days from acute trauma for continued pain IMPRESSION: 1. No acute osseous abnormality right ankle [facility], , 04/03/2025 9:15 PM
[2025-04-03] MEDS: DONEPEZIL 10 MG TAB PO SCH (21:37)
[2025-04-03] MEDS: ASPIRIN 81 MG PO SCH (21:37)
[2025-04-03] MEDS: carBAMazepine 200 MG TAB PO SCH (21:37)
[2025-04-03] MEDS: DOCUSATE 100 MG CAP PO SCH (21:37)
[2025-04-03] MEDS: lisinopriL 20 MG TAB PO SCH (21:37)
[2025-04-03] MEDS: HEPARIN SODIUM,PORCINE 5,000 UNIT/ML 1 ML VIAL SQ SCH (21:37)
[2025-04-03] MEDS: TROSPIUM CHLORIDE 20 MG TABLET PO SCH (21:38)
[2025-04-03] MEDS: VIT A,C & E-LUTEIN-MINERALS 1 EACH TAB PO SCH (21:38)
[2025-04-03] MEDS: DIVALPROEX ER 250 MG TAB.ER.24H PO SCH (21:39)
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
[2025-04-04] MEDS: LEVOTHYROXINE 125 MCG TAB PO SCH (06:41)
[2025-04-04 08:05] LABS: Basophils # (A) 0.03 X 10*3/uL (0.00-0.10); Basophils % (A) 0.4 %; Eosinophils # (A) 0.03 X 10*3/uL (0.04-0.35); Eosinophils % (A) 0.4 %; HCT 37.5 % (37.2-46.3); HGB 12.1 g/dL (12.0-15.0); Lymphocytes % (A) 36.8 %; MCH 32.7 pg (27.0-32.0); MCHC 32.3 g/dL (32.0-37.0); MCV 101.4 FL (80.0-97.0); Mean Platelet Volume 11.6 FL (9.5-12.2); Monocytes # (A) 0.99 X 10*3/uL (0.20-1.00); Monocytes % (A) 13.5 %; NRBC Per 100 WBC 0 X 10*3/uL (0.00-0.01); Neutrophils # (A) 3.56 X 10*3/uL (1.80-7.70); Neutrophils % (A) 48.6 %; Platelet Count 215 X 10*3/uL (140-440); RDW 14.5 % (11.5-14.5); WBC 7.33 X 10*3/uL (4.50-10.00)
[2025-04-04 08:28] LABS: Blood Urea Nitrogen 9.4 mg/dL (9.0-27.0); Calcium 8.5 mg/dL (8.7-10.3); Carbon Dioxide 26.4 mmol/L (21.6-31.8); Chloride 100 mmol/L (96-109); Glucose 93 mg/dL (70-110); Potassium 3.5 mmol/L (3.5-5.5); Sodium 137 mmol/L (135-145)
[2025-04-04] MEDS: CALCIUM CARB-VIT D 500 MG-5 MCG TAB PO SCH (09:18)
[2025-04-04] MEDS: SERTRALINE 50 MG TAB PO SCH (09:18)
[2025-04-04] MEDS: DIVALPROEX ER 500 MG TAB.ER.24H PO SCH (09:19)
[2025-04-04] MEDS: CYANOCOBALAMIN 500 MCG TAB PO SCH (09:19)
[2025-04-04] MEDS: lisinopriL 10 MG TAB PO SCH (09:19)
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
[2025-04-05 08:38] LABS: Blood Urea Nitrogen 22.8 mg/dL (9.0-27.0); Glucose 91 mg/dL (70-110)
[2025-04-05 08:39] LABS: Calcium 8.8 mg/dL (8.7-10.3); Carbon Dioxide 28.4 mmol/L (21.6-31.8); Chloride 99 mmol/L (96-109); Potassium 3.6 mmol/L (3.5-5.5); Sodium 138 mmol/L (135-145)
[2025-04-05 08:50] LABS: HCT 35.5 % (37.2-46.3); HGB 11.3 g/dL (12.0-15.0); MCH 31.9 pg (27.0-32.0); MCHC 31.8 g/dL (32.0-37.0); MCV 100.3 FL (80.0-97.0); Mean Platelet Volume 11.7 FL (9.5-12.2); NRBC Per 100 WBC 0 X 10*3/uL (0.00-0.01); Platelet Count 219 X 10*3/uL (140-440); RBC 3.54 X 10*6/uL (4.10-5.20); WBC 6.24 X 10*3/uL (4.50-10.00)
[2025-04-05 08:51] LABS: Basophils # (A) 0.02 X 10*3/uL (0.00-0.10); Basophils % (A) 0.3 %; Eosinophils % (A) 1.6 %; Lymphocytes # (A) 2.72 X 10*3/uL (0.90-5.00); Lymphocytes % (A) 43.6 %; Monocytes # (A) 0.77 X 10*3/uL (0.20-1.00); Monocytes % (A) 12.3 %; Neutrophils # (A) 2.61 X 10*3/uL (1.80-7.70); Neutrophils % (A) 41.9 %
[2025-04-05 15:21] VITALS: BP 159/80; PULSE 78; RESP 17; TEMP 97.6
[2025-04-05] MEDS: LACTULOSE 20 GM/30 ML CUP PO ONE (16:33)
--- NOTE | 2025-04-05 22:04 | P.PN ---
Subjective Progress Note Date: 04/04/25 Principal diagnosis: Reason for follow-up is COVID-19 with possible UTI Patient is a 74-year-old female with a past medical history difficult for CVA TIA hypertension memory impairment seizure disorder and hypothyroidism patient has been brought into the hospital concerning for worsening weakness patient did tested positive for COVID-19 and also have a positive UA concerning for UTI prompting this consultation. On today's evaluation that is 04/04/2025,the patient is more awake and alert today she is afebrile, patient is breathing comfortably on room air, the patient denies chest pain shortness of breath and no significant cough, patient denies abdominal pain, no nausea vomiting or diarrhea. Patient did have a white count of 7.33, creatinine 0.5 Objective - Vital Signs Vital signs: Vital Signs Temp 98.5 F 04/04/25 14:50 Pulse 82 04/04/25 14:50 Resp 18 04/04/25 14:50 BP 130/78 04/04/25 14:50 Pulse Ox 98 04/04/25 14:50 FiO2 Intake & Output 04/03/25 04/04/25 04/04/25 18:59 06:59 18:59 Intake Total 450 Balance 450 Weight 61.235 kg 61.235 kg Intake: Oral 450 Other: # Bowel Movements 1 - Exam GENERAL DESCRIPTION: An elderly female lying in bed in no distress RESPIRATORY SYSTEM: Unlabored breathing , decreased breath sounds at bases HEART: S1 S2 regular rate and rhythm , ABDOMEN: Soft , no tenderness EXTREMITIES: No edema feet - Labs CBC & Chem 7: 04/05/25 03:18 04/05/25 03:18 Labs: Abnormal Lab Results - Last 24 Hours (Table) 04/03/25 04/04/25 04/04/25 Range/Units 18:09 03:49 03:49 RBC 3.70 L (4.10-5.20) X 10*6/uL MCV 101.4 H (80.0-97.0) FL MCH 32.7 H (27.0-32.0) pg Eosinophils # 0.03 L (0.04-0.35) X 10*3/uL Creatinine 0.5 L (0.6-1.5) mg/dL Calcium 8.5 L (8.7-10.3) mg/dL SARS-CoV-2 (PCR) Detected A (Not Detectd) Assessment and Plan (1) Penicillin allergy Status: Acute Code(s): Z88.0 - ALLERGY STATUS TO PENICILLIN SNOMED Code(s): 95085060 (2) COVID-19 Status: Acute Code(s): U07.1 - COVID-19 SNOMED Code(s): 253305256 (3) Pneumonia Status: Acute Code(s): J18.9 - PNEUMONIA, UNSPECIFIED ORGANISM SNOMED Code(s): 717072972 (4) UTI (urinary tract infection) Status: Acute Code(s): N39.0 - URINARY TRACT INFECTION, SITE NOT SPECIFIED SNOMED Code(s): 48209173 Plan: 1patient has been brought to the hospital with generalized weakness decreased appetite has been also mention more cloudy and foul-smelling urine with a positive highly suspicious for UTI to be the likely pathogen with a chest x-ray also suspicious for pneumonia however no significant respiratory system were reported by the 2-patient also tested positive for COVID-19 however the patient is currently not hypoxic treatment will be mostly supportive 3-penicillin allergy that would limit the number of antibiotics safe to use 4-patient seem to show some clinical improvement to continue with Rocephin while waiting for the culture to finalize Dictation was produced using [employer] dictation software. please excuse any grammatical, word or spelling errors. Time with Patient: Less than 30
--- NOTE | 2025-04-05 22:05 | P.PN ---
Subjective Progress Note Date: 04/05/25 Principal diagnosis: Reason for follow-up is COVID-19 with possible UTI Patient is a 74-year-old female with a past medical history difficult for CVA TIA hypertension memory impairment seizure disorder and hypothyroidism patient has been brought into the hospital concerning for worsening weakness patient did tested positive for COVID-19 and also have a positive UA concerning for UTI prompting this consultation. On today's evaluation that is 04/05/2025,the patient remains to be afebrile, patient is on room air not requiring supplemental oxygen and denies any short ness of breath no chest pain or cough.Patient denies having any nausea or vomiting, no abdominal pain and no diarrhea has been reported, patient patient feeling better wants to go home. Patient white count 6.24, creatinine 0.8 Objective - Vital Signs Vital signs: Vital Signs Temp 97.4 F L 04/05/25 07:00 Pulse 86 04/05/25 07:00 Resp 18 04/05/25 07:00 BP 132/86 04/05/25 07:00 Pulse Ox 98 04/05/25 07:00 FiO2 Intake & Output 04/04/25 04/05/25 04/05/25 18:59 06:59 18:59 Intake Total 450 180 Balance 450 180 Intake: Oral 450 180 Other: Voiding Method Bedside Commode # Voids 1 # Bowel Movements 1 1 - Exam GENERAL DESCRIPTION: An elderly female lying in bed in no distress RESPIRATORY SYSTEM: Unlabored breathing , decreased breath sounds at bases HEART: S1 S2 regular rate and rhythm , ABDOMEN: Soft , no tenderness EXTREMITIES: No edema feet - Labs CBC & Chem 7: 04/05/25 03:18 04/05/25 03:18 Labs: Abnormal Lab Results - Last 24 Hours (Table) 04/05/25 04/05/25 Range/Units 03:18 03:18 RBC 3.54 L (4.10-5.20) X 10*6/uL Hgb 11.3 L (12.0-15.0) g/dL Hct 35.5 L (37.2-46.3) % MCV 100.3 H (80.0-97.0) FL MCHC 31.8 L (32.0-37.0) g/dL BUN/Creatinine Ratio 28.50 H (12.00-20.00) Ratio Microbiology - Last 24 Hours (Table) 04/04/25 01:15 Urine Culture - Final Urine,Voided Assessment and Plan (1) Penicillin allergy Status: Acute Code(s): Z88.0 - ALLERGY STATUS TO PENICILLIN SNOMED Code(s): 23815400 (2) COVID-19 Status: Acute Code(s): U07.1 - COVID-19 SNOMED Code(s): 563634052 (3) Pneumonia Status: Acute Code(s): J18.9 - PNEUMONIA, UNSPECIFIED ORGANISM SNOMED Code(s): 475454961 (4) UTI (urinary tract infection) Status: Acute Code(s): N39.0 - URINARY TRACT INFECTION, SITE NOT SPECIFIED SNOMED Code(s): 50902687 Plan: 1patient has been brought to the hospital with generalized weakness decreased appetite has been also mention more cloudy and foul-smelling urine with a positive highly suspicious for UTI to be the likely pathogen with a chest x-ray also suspicious for pneumonia however no significant respiratory system were reported by the 2-patient also tested positive for COVID-19 however the patient is currently not hypoxic treatment will be mostly supportive 3-penicillin allergy that would limit the number of antibiotics safe to use 4-patient seem to show some clinical improvement with Rocephin feeling better wants to go home consider short course of oral Ceftin on discharge Dictation was produced using [employer] software. please excuse any grammatical, word or spelling errors.
[2025-04-06] MEDS ORDERED: NON FORMULARY DRUG (Alendronate Sodium [Fosamax] 70 MG Tablet) PO SCH (16:55)
== END 2025-04-05 18:40 | disposition home health service (06) ==
LOC: EC 11:47 → 6NMEDSUR 15:17 → 4SSUR 04-04 01:14
PROVIDERS: ADMIT Hospitalist; ATTEND Hospitalist
DX: N39.0 Urinary tract infection, site not specified (principal); U07.1 COVID-19; J12.82 Pneumonia due to coronavirus disease 2019; S93.401A Sprain of unspecified ligament of right ankle, initial encounter; W19.XXXA Unspecified fall, initial encounter; I10 Essential (primary) hypertension; E03.9 Hypothyroidism, unspecified; I69.351 Hemiplegia and hemiparesis following cerebral infarction affecting right dominant side; I69.320 Aphasia following cerebral infarction; Z87.891 Personal history of nicotine dependence; Z79.82 Long term (current) use of aspirin; Z79.83 Long term (current) use of bisphosphonates; Z79.890 Hormone replacement therapy; Z79.899 Other long term (current) drug therapy; Z88.0 Allergy status to penicillin; Z88.6 Allergy status to analgesic agent
CPT/HCPCS: 96366 ×2; 96367; 96372 ×3; 96365; 96375; 99285; 36415; 93005; 97162; 80156; 80053; 80048 ×2; 82140; 83735; 85025 ×3; 85610; 85730; 81001; 87086; 80184; 87636; 73610; 71046; 70450; G0378 ×3; J1644 ×3; J0456; J0696 ×3